=== PATIENT | male | born 1935 | race Caucasian/White ===

== ENCOUNTER 2016-07-08 10:18 | Day surgery (SDC) | payer MEDICARE ==
[~2016-07-08] VITALS: Ht 175.3 cm; Wt 86.4 kg
[~2016-07-08 10:18] MED LIST: ACETAMINOPHEN 500 MG TAB (TYLENOL) PO PRN; CHONDROITIN/HYALURONATE (DISCOVISC) 1 ML SYR IO ONE; PHENYLEPHRINE/KETOROLAC 4 ML VIAL IO ONE; SODIUM CHLORIDE FLUSH 3 ML SYR IV PRN; TETRACAINE 0.5% OPHTHALMIC SOLUTION 4 ML BTL ONE; diphenhydrAMINE 50 MG/ML INJ (BENADRYL) IV PRN
--- OUTSIDE RECORDS SUMMARY | 2016-07-08 10:22 | XMS REPORT | Summary of Care ---
Author Author Vipin Michelle, Ez Organization Unknown Address Unknown Phone Unavailable Care Team Providers Care Tobacco Buyer Name Role Phone Zachary Acharya M.D. Unavailable Unavailable Ez Lew M.D. Unavailable Unavailable Zachary Acharya Unavailable Unavailable Unavailable Unavailable Functional Status Name Dates Details Functional status health issues are not documented Status: Name Dates Details Cognitive status health issues are not documented Status: Problems Name Dates Details Pseudogout (275.49, M11.80) Status: Active Hallux valgus (735.0, M20.10) Status: Active Polyarthritis (716.50, M13.0) Status: Active On methotrexate therapy (V58.69, Z79.899) Status: Active Acute pain of left knee (719.46, M25.562) Status: Active Primary osteoarthritis of left knee (715.16, M17.12) Status: Active Swelling of right knee joint (719.06, M25.461) Status: Active High cholesterol (272.0, E78.0) Status: Active Impaired glucose tolerance (790.22, R73.02) Status: Active Acid reflux (530.81, K21.9) Status: Active Chest pain, midsternal (786.51, R07.89) Status: Active 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 Start 13-Apr-2008 Active Folic Acid 1 MG Oral Tablet TAKE TWO TABLET(S) BY MOUTH EVERY DAY Quantity: 180 Refills: 3 Vipin Michelle, Ez Start Active Methotrexate Sodium 25 MG/ML Injection Solution INJECT 0.5 ML Weekly Quantity: 1 Refills: 2 Vipin Michelle, Ez Start 08-Jun-2008 Active 10 ML Vial PredniSONE 5 MG Oral Tablet TAKE 1 1/2 TABLET DAILY. Quantity: 200 Refills: 2 Vipin Michelle, Ez Start 02-Jul-2011 Active Lisinopril-Hydrochlorothiazide 20-25 MG Oral Tablet TAKE 1 TABLET DAILY. Refills: 0 Vipin Michelle, Ez Start 23-Jun-2014 Active Aspir-Low 81 MG Oral Tablet Delayed Release TAKE 1 TABLET DAILY. Refills: 0 Marck Michelle Zachary Start Active Allergies and Adverse Reactions Name Dates Details No Known Drug Allergies (Allergy) Status: Active Past Medical History Name Dates Details History of deep venous thrombosis (V12.51, Z86.718) Status: Resolved History of rheumatoid arthritis (V13.4, Z87.39) Status: Resolved Procedures Procedure Dates Details History of Surgery Left Foot Amputation MTP Second Toe PROTIME PANEL 7000 Ordered: 09-Nov-2015 PTT 7500 Ordered: 09-Nov-2015 Immunization Name Dates Details Immunizations not documented Family History Name Dates Details No pertinent family history Status: Active Name Dates Details No pertinent family history Status: Active Social History Name Dates Details - Status: Name Dates Details Former smoker Vital Signs Date Test Result Details 09-Nov-2015 11:17 BP Systolic 102 mm[Hg] Status: Comments: Location: ; Position: BP Diastolic 56 mm[Hg] Status: Comments: Location: ; Position: Weight 191 lb Status: Body Mass Index Calculated 29.04 kg/m2 Status: Body Surface Area Calculated 2 m2 Status: Results Date Description Value Details 08-Nov-2015 14:09 Comprehensive Metabolic Panel 1212 SODIUM 133 mmol/L Range: 133-144 POTASSIUM 4.5 mmol/L Range: 3.5-5.1 CHLORIDE 97 mmol/L (Below low threshold) Range: 98-110 CARBON DIOXIDE 26.3 mmol/L Range: 23.0-33.0 ANION GAP 10 mmol/L Range: 6-16 BUN 22 mg/dL (Above high threshold) Range: 7-18 CREATININE, SERUM 1.72 mg/dL (Above high threshold) Range: 0.70-1.30 Comments: Please note new reference ranges effective 2014.----- BUN:CREATININE RATIO 13 EST GFR, 47 ml/min (Below low threshold) Range: >60 EST GFR, NON-AFR MICRONESIAN 38 ml/min (Below low threshold) Range: >60 Comments: EST GFR is reported in ml/min per 1.73 m2 of body surface area. For -[place], please multiple result by 1.2.----- GLUCOSE 89 mg/dL Range: 70-100 ALK PHOSPHATASE 72 U/L Range: 46-116 TOTAL BILIRUBIN 0.40 mg/dL Range: 0.20-1.00 AST 15 U/L Range: 8-35 ALT 19 U/L Range: 16-63 Comments: Please note new reference ranges. Effective 05/26/2014.----- ALBUMIN 3.5 g/dL Range: 3.4-5.0 TOTAL PROTEIN 6.6 g/dL Range: 6.4-8.2 A/G RATIO 1.1 units Range: 1.0-1.8 CALCIUM 8.4 mg/dL (Below low threshold) Range: 8.5-10.1 14:18 CBC w/ Auto Diff 7150 Comments: Manual differential indicated. WBC 8.1 K/uL Range: 4.5-11.0 RBC 4.42 mil/uL Range: 4.20-5.40 HGB 13.6 g/dL (Below low threshold) Range: 14.0-18.0 HCT 41.4 % (Below low threshold) Range: 42.0-53.0 MCV 93.7 fL Range: 80.0-99.0 MCH 30.7 pg Range: 27.3-32.5 MCHC 32.7 % Range: 32.0-36.0 RDW 15.5 % (Above high threshold) Range: 11.6-14.8 PLATELETS 275 K/uL Range: 150-400 MPV 8.3 fL Range: 6.0-11.0 14:34 Manual Differential 7400 SEGS 81 % (Above high threshold) Range: 37-80 BANDS 0 % Range: 0-7 LYMPH 13 % Range: 13-50 MONO 5 % Range: 0-12 EOSIN 1 % Range: 0-7 BASO 0 % Range: 0-3 JULIETA LYMPH 0 % Range: 0-0 META 0 % Range: 0-0 MYELO 0 % Range: 0-0 PRO 0 % Range: 0-0 BLAST 0 % Range: 0-0 NUC RBC 0 /100 WBC Range: 0-0 SMUDGE 0 /100 WBC PLATELET Adequate Range: Adequate 14:35 ERYTHROCYTE SED RATE 7800 ERYTHROCYTE SED RATE 6 mm/60 min. Range: 0-15 Plan of Care Name Dates Details Planned Observations Planned Goals not documented Planned Encounters Appointment; Provider: Zachary Acharya M.D. On 27-Mar-2016 09:00 Appointment; Provider: Ez eLw M.D. On 28-Dec-2015 11:45 Appointment; Provider: Zachary Acharya M.D. On 13-Nov-2015 10:30 Instructions Name Dates Details Instructions not documented Encounters Appointment; Ez Lew M.D. Encounter Diagnosis: Problem not documented On 11:45 Appointment; Zachary Acharya M.D. Encounter Diagnosis: Problem not documented On 10:00 Appointment; Ez Lew M.D. Encounter Diagnosis: Problem not documented On 11:45 Appointment; Ez Lew M.D. Encounter Diagnosis: Problem not documented On 05-Jul-2015 12:30 Appointment; Ez Lew M.D. Encounter Diagnosis: Problem not documented On 26-May-2015 15:45 Appointment; Ez Lew M.D. Encounter Diagnosis: Problem not documented On 11-Apr-2015 12:00 Appointment; Ez Lew M.D. Encounter Diagnosis: Problem not documented On 28-Feb-2015 12:30 Appointment; Ez Lew M.D. Encounter Diagnosis: Problem not documented On 17-Jan-2015 11:45 Appointment; Ez Lew M.D. Encounter Diagnosis: Problem not documented On 06-Dec-2014 12:30 Appointment; Ez Lew M.D. Encounter Diagnosis: Problem not documented On 25-Oct-2014 11:45 Appointment; Ez Lew M.D. Encounter Diagnosis: Problem not documented On 12:00 Appointment; Ez Lew M.D. Encounter Diagnosis: Problem not documented On 02-Aug-2014 11:30 Appointment; Ez Lew M.D. Encounter Diagnosis: Problem not documented On 23-Jun-2014 12:00 Appointment; Ez Lew M.D. Encounter Diagnosis: Problem not documented On 12-May-2014 11:45 Appointment; Ez Lew M.D. Encounter Diagnosis: Problem not documented On 30-Mar-2014 11:45 Appointment; Ez Lew M.D. Encounter Diagnosis: Problem not documented On 16-Mar-2014 11:00 Appointment; Ez Lew M.D. Encounter Diagnosis: Problem not documented On 15-Mar-2014 15:15 Appointment; Ez Lew M.D. Encounter Diagnosis: Problem not documented On 10-Jan-2014 12:00 Appointment; Ez Lew M.D. Encounter Diagnosis: Problem not documented On 30-Nov-2013 12:15
[2016-07-08 11:22] VITALS: BP 116/57
[2016-07-08] MEDS: LIDOCAINE 3.5% OPHTH GEL (AKTEN) 1 ML BTL OD SCH ×3 (11:40→12:00)
[2016-07-08] MEDS: CATARACT PRE-OP EYE DROPS 0.5ML SYRINGE OD SCH ×2 (11:50→12:00)
[2016-07-08] MEDS: HOME MEDICATION OD SCH ×2 (11:50→12:00)
[2016-07-08] MEDS ORDERED: FLC1T PO (11:53)
[2016-07-08] MEDS ORDERED: METH25VI2 IJ (11:53)
[2016-07-08] MEDS ORDERED: LISI1TAB10 PO (11:54)
[2016-07-08] MEDS ORDERED: PRD5T PO (11:54)
[2016-07-08] MEDS ORDERED: ASPI-586 PO (11:54)
[2016-07-08] MEDS ORDERED: MIDAZOLAM 2 MG/2 ML (VERSED) VIAL ONE (12:20)
[2016-07-08 13:00] VITALS: BP 106/55
== END 2016-07-08 12:56 | disposition home or self-care (01) ==
LOC: ASC 10:18
PROVIDERS: ATTEND Ophthalmology
DX: H26.9 Unspecified cataract (principal); I10 Essential (primary) hypertension; M19.90 Unspecified osteoarthritis, unspecified site; Z79.52 Long term (current) use of systemic steroids; Z79.899 Other long term (current) drug therapy; Z79.82 Long term (current) use of aspirin; Z96.651 Presence of right artificial knee joint
CPT/HCPCS: 36415; 66984; 84132; A9270; C9447; J2250; V2632

== ENCOUNTER 2016-08-05 06:33 | Day surgery (SDC) | payer MEDICARE ==
[~2016-08-05] VITALS: Ht 175.3 cm; Wt 79.5 kg
[~2016-08-05 06:33] MED LIST changes: +ASPI-586 PO; -CHONDROITIN/HYALURONATE (DISCOVISC) 1 ML SYR IO ONE; +FLC1T PO; +LISI1TAB10 PO; +METH25VI2 IJ; -PHENYLEPHRINE/KETOROLAC 4 ML VIAL IO ONE; +PRD5T PO; -TETRACAINE 0.5% OPHTHALMIC SOLUTION 4 ML BTL ONE
[2016-08-05] MEDS ORDERED: TETRACAINE 0.5% OPHTHALMIC SOLUTION 4 ML BTL ONE (06:52)
[2016-08-05] MEDS ORDERED: PHENYLEPHRINE/KETOROLAC 4 ML VIAL IO ONE (06:52)
[2016-08-05] MEDS ORDERED: CHONDROITIN/HYALURONATE (DISCOVISC) 1 ML SYR IO ONE (06:52)
[2016-08-05 07:16] VITALS: BP 126/69
[2016-08-05] MEDS: LIDOCAINE 3.5% OPHTH GEL (AKTEN) 1 ML BTL OS SCH ×4 (07:23→07:58)
[2016-08-05] MEDS: CATARACT PRE-OP EYE DROPS 0.5ML SYRINGE OS SCH ×3 (07:35→07:59)
[2016-08-05] MEDS: HOME MEDICATION OS SCH ×3 (07:35→07:59)
[2016-08-05] MEDS ORDERED: MIDAZOLAM 2 MG/2 ML (VERSED) VIAL ONE (08:30)
[2016-08-05 09:06] VITALS: BP 122/67
[2016-08-05 09:30] VITALS: BP 137/70
== END 2016-08-05 09:33 | disposition home or self-care (01) ==
LOC: ASC 06:33
PROVIDERS: ATTEND Ophthalmology
DX: H25.12 Age-related nuclear cataract, left eye (principal); I10 Essential (primary) hypertension; M19.90 Unspecified osteoarthritis, unspecified site; Z79.82 Long term (current) use of aspirin; Z79.52 Long term (current) use of systemic steroids
CPT/HCPCS: 36415; 66984; 84132; A9270; C9447; J2250; V2632